=== PATIENT | female | born 1940 | race Caucasian/White ===

== ENCOUNTER 2019-03-24 20:52 | Emergency (ER) | payer OTHER ==
[~2019-03-24] VITALS: Ht 147.3 cm; Wt 69.9 kg
[2019-03-25 01:05] VITALS: BP 121/69
== END 2019-03-25 01:05 | disposition home or self-care (01) ==
LOC: ED 20:52
DX: S09.90XA Unspecified injury of head, initial encounter (principal); I10 Essential (primary) hypertension; E11.9 Type 2 diabetes mellitus without complications; E78.00 Pure hypercholesterolemia, unspecified; W01.0XXA Fall on same level from slipping, tripping and stumbling without subsequent striking against object, initial encounter; Y93.89 Activity, other specified; Y92.89 Other specified places as the place of occurrence of the external cause; Y99.8 Other external cause status